=== PATIENT | female | born 1955 | race Caucasian/White ===

== ENCOUNTER 2022-03-20 10:12 | Emergency (ER) | payer MEDICARE, MEDICAID ==
[~2022-03-20] VITALS: Ht 147.3 cm; Wt 100.0 kg
[2022-03-20 11:48] LABS: BASOPHILS % (AUTO) 0.8 % (0-1); EOSINOPHILS # (AUTO) 0.1 X10'3 (0-0.9); EOSINOPHILS % (AUTO) 1.8 % (0-6); HEMATOCRIT 43.7 % (35.0-45.0); HEMOGLOBIN 14.9 g/dl (12.0-16.0); LYMPHOCYTES # (AUTO) 1.7 X10'3 (1.1-4.8); LYMPHOCYTES % (AUTO) 29.9 % (21-51); MEAN CORPUSCULAR HEMOGLOBIN 31.1 PG (27.0-31.0); MEAN CORPUSCULAR HGB CONC 34.1 g/dL (33.0-36.5); MEAN CORPUSCULAR VOLUME 91.4 FL (78-98); MEAN PLATELET VOLUME 9.4 FL (7.4-10.4); MONOCYTES # (AUTO) 0.4 X10'3 (0-0.9); MONOCYTES % (AUTO) 7.7 % (2-12); NEUTROPHILS # (AUTO) 3.3 X10'3 (1.8-7.7); NEUTROPHILS % (AUTO) 59.8 % (42-75); PLATELET COUNT 213 X10'3 (140-440); RED BLOOD COUNT 4.78 X10'6 (4.20-5.60); RED CELL DISTRIBUTION WIDTH 14.9 % (11.5-14.5); WHITE BLOOD COUNT 5.6 X10'3 (4.5-11.0)
[2022-03-20 12:07] LABS: ALANINE AMINOTRANSFERASE 26 U/L (12-78); ALBUMIN 3.8 G/DL (3.4-5.0); ALBUMIN/GLOBULIN RATIO 0.9 (1.1-1.5); ALKALINE PHOSPHATASE 51 IU/L (46-116); ANION GAP 12 (8-16); ASPARTATE AMINO TRANSFERASE 18 U/L (10-37); BILIRUBIN,TOTAL 0.3 MG/DL (0.1-1.0); BLOOD UREA NITROGEN 17 MG/DL (7-18); BUN/CREATININE RATIO 23.3 (6.6-38.0); CALCIUM 9.4 MG/DL (8.5-10.1); CHLORIDE 102 MMOL/L (99-107); CREATININE 0.73 MG/DL (0.40-0.90); GLUCOSE 117 MG/DL (70-104); SODIUM 137 MMOL/L (135-145); TOTAL CARBON DIOXIDE 22.8 MMOL/L (24-32); eGFR 79 ML/MIN
[2022-03-20 13:35] LABS: D-DIMER 0.34 MG/L FEU (0-0.50)
[2022-03-20] MEDS ORDERED: CYCL-1 PO (14:59)
[2022-03-20] MEDS ORDERED: PRED20TA PO (14:59)
[2022-03-20 15:17] VITALS: BP 149/56
== END 2022-03-20 15:18 | disposition home or self-care (01) ==
LOC: ER 10:13
DX: M54.6 Pain in thoracic spine (principal); Z79.899 Other long term (current) drug therapy
CPT/HCPCS: 36415; 71045; 80053; 83880; 84484; 85025; 85379; 93005; 99285

== ENCOUNTER 2024-05-01 14:12 | Outpatient (CLI) | payer MEDICARE, MEDICAID ==
[~2024-05-01 14:12] MED LIST: CYCL-1 PO
== END 2024-05-01 23:59 | disposition home or self-care (01) ==
LOC: MRI02 14:12
PROVIDERS: ATTEND Pediatrics Sports Medicine
DX: M47.817 Spondylosis without myelopathy or radiculopathy, lumbosacral region (principal); M48.061 Spinal stenosis, lumbar region without neurogenic claudication; M40.46 Postural lordosis, lumbar region; M51.370 Other intervertebral disc degeneration, lumbosacral region with discogenic back pain only
CPT/HCPCS: 72148

== ENCOUNTER 2025-01-18 07:24 | Day surgery (SDC) | payer MEDICARE, MEDICAID ==
[2025-01-18] VITALS (9 sets, daily range): BP systolic 88–124; BP diastolic 32–71; PULSE 71–86; RESP 14–17; TEMP 98.1; O2SAT 96–100
[~2025-01-18] VITALS: Ht 147.3 cm; Wt 70.5 kg
[~2025-01-18 07:24] MED LIST changes: +ALEN70TA80 PO; -CYCL-1 PO; +LISI10TA27 PO; +ONDA-243 PO; +ROSU5TAB51 PO; +TIRZ15PE SQ
[2025-01-18] MEDS: ringers solution, lacted 1,000 ML IV SCH (08:03)
--- NOTE | 2025-01-18 08:13 | ELECTROCARDIOGRAPH REPORT ---
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 SHELLIE Ramirez Measurements Intervals [place] Rate: 73 P: 67 PA: 125 QRS: 15 QRSD: 93 T: 30 QT: 395 QTc: 436 Interpretive Statements Sinus rhythm Electronically Signed On 01-18-2025 18:04:[address] SHELLIE Ramirez Please click the below link to view image of tracing.
[2025-01-18] MEDS ORDERED: midazolam 1 mg/ML 2ml injection ONE (10:19)
[2025-01-18] MEDS ORDERED: fentaNYL/PF 50MCG/1 ML 2ML syringe ONE (10:20)
[2025-01-18] MEDS ORDERED: propofol inj 20 ML IV ONE ×2 (10:21→10:30)
== END 2025-01-18 11:20 | disposition home or self-care (01) ==
LOC: GI LAB 07:24
PROVIDERS: ATTEND Internal Medicine Gastroenterology
DX: R10.30 Lower abdominal pain, unspecified (principal); K57.30 Diverticulosis of large intestine without perforation or abscess without bleeding; K64.8 Other hemorrhoids; K52.9 Noninfective gastroenteritis and colitis, unspecified; I10 Essential (primary) hypertension; E11.9 Type 2 diabetes mellitus without complications; E66.9 Obesity, unspecified; G47.33 Obstructive sleep apnea (adult) (pediatric); G43.909 Migraine, unspecified, not intractable, without status migrainosus; Z79.899 Other long term (current) drug therapy; Z90.49 Acquired absence of other specified parts of digestive tract; Z98.890 Other specified postprocedural states; Z68.32 Body mass index [BMI] 32.0-32.9, adult
CPT/HCPCS: 45380; 82948; 88305; 93005; A4618; A4620; J2250; J2704; J3010; J7120; Z7512; Z7610